=== PATIENT | male | born 1980 | race Caucasian/White ===

== ENCOUNTER 2020-09-24 21:35 | Emergency (ER) | payer OTHER ==
[2020-09-24] MEDS ORDERED: VIBRAMYCIN100 MG PO (22:51)
[2020-09-24] MEDS ORDERED: CEPHALEXIN500 M1 PO (22:51)
== END 2020-09-24 23:13 | disposition home or self-care (01) ==
LOC: FER 21:35
DX: E11.621 Type 2 diabetes mellitus with foot ulcer (principal); E11.40 Type 2 diabetes mellitus with diabetic neuropathy, unspecified
CPT/HCPCS: 73620